=== PATIENT | female | born 1955 | race Caucasian/White ===

== ENCOUNTER 2023-04-21 15:02 | Outpatient (CLI) | payer BC, MEDICARE | END 2023-04-21 15:03 | disposition home or self-care (01) | LOC: CSHMAMMO 15:02 | PROVIDERS: ATTEND Physician Assistant | DX: Z13.820 Encounter for screening for osteoporosis (principal); Z78.0 Asymptomatic menopausal state; M81.0 Age-related osteoporosis without current pathological fracture | CPT/HCPCS: 77080 ==

== ENCOUNTER 2023-08-31 10:03 | Outpatient (CLI) | payer BC | END 2023-08-31 10:04 | disposition home or self-care (01) | LOC: CSHRAD 10:03 | PROVIDERS: ATTEND Internal Medicine Rheumatology | DX: M81.0 Age-related osteoporosis without current pathological fracture (principal); M41.84 Other forms of scoliosis, thoracic region | CPT/HCPCS: 72070 ==

== ENCOUNTER 2024-03-28 15:24 | Outpatient (CLI) | payer BC | END 2024-03-28 15:25 | disposition home or self-care (01) | LOC: CSHMAMMO 15:24 | PROVIDERS: ATTEND Physician Assistant | DX: Z12.31 Encounter for screening mammogram for malignant neoplasm of breast (principal) | CPT/HCPCS: 77067 ==